=== PATIENT | male | born 1930 | race Caucasian/White ===

== ENCOUNTER 2020-03-16 11:11 | Observation (INO) | payer MEDICARE, BC ==
[~2020-03-16] VITALS: Ht 182.9 cm; Wt 104.3 kg
[2020-03-16] VITALS (8 sets, daily range): BP systolic 100–157; BP diastolic 54–77
--- NOTE | ~2020-03-16 | H ---
[address] [address] HISTORY AND PHYSICAL Name: KELSIEMAIDA Room: [address] Hali Gonsalves#: [id number] Admission: 03/16/20 Attend Phys: Quinn Anderson MD, Discharge: 03/17/20 Date of : [birth year] Report #: [id number] THIS REPORT FOR: //name// cc: Esther Muñiz MD, Amir R. MD ~ THIS REPORT FOR: //name// Please refer to the History and Physical performed in the physician's office. By: [facility]3Medical Records Staff [facility] /MIGUEL
[2020-03-16 11:55] LABS: HEMATOCRIT 43.1 % (42.0-52.0); HEMOGLOBIN 14.8 gm/dL (14.0-18.0); MCH 31.6 pg (26.0-34.0); MCHC 34.4 g/dL (28.0-37.0); MCV 91.7 fL (80.0-100.0); RBC 4.7 mil/uL (4.50-6.00); RDW-CV 13.4 % (10.5-14.5)
[2020-03-16 12:03] LABS: ANION GAP 8 mmol/L (7-16); BUN 25 mg/dL (7-18); CALCIUM 9.5 mg/dL (8.5-10.1); CHLORIDE 102 mmol/L (98-107); CO2 26 mmol/L (21-32); GLUCOSE 245 mg/dL (70-99); POTASSIUM 4.7 mmol/L (3.5-5.1); SODIUM 136 mmol/L (136-145)
[2020-03-16 12:04] LABS: APTT 26.5 Seconds (25.0-31.3); PROTIME 10.8 Seconds (9.20-11.50)
[2020-03-16 12:07] LABS: ALBUMIN 3.5 g/dL (3.4-5.0); ALKALINE PHOSPHATASE 109 U/L (46-116); CHOLESTEROL 109 mg/dL (<200); HDL CHOLESTEROL 31 mg/dL (>40); LDL CHOLESTEROL 25 mg/dL (<100); SGOT 20 U/L (15-37); SGPT 25 U/L (30-65); TC:HDL 3.5 Ratio (Not establshd); TOTAL BILIRUBIN 0.9 mg/dL (<0.1-1.0); TOTAL PROTEIN 7.4 g/dL (6.4-8.2); TRIGLYCERIDE 268 mg/dL (<150); VLDL 54 mg/dL (<40)
[2020-03-16 12:09] LABS: SERUM ASSESSMENT Clear
[2020-03-16] MEDS ORDERED: ADULT LOW DOSE81 MG PO (13:42)
[2020-03-16] MEDS ORDERED: LIPITOR 20 MG T20 M1 PO (13:43)
[2020-03-16] MEDS ORDERED: VITAMIN D-40010 MCG PO (13:45)
[2020-03-16] MEDS ORDERED: ARICEPT10 M1 PO (13:47)
[2020-03-16] MEDS ORDERED: TRULICITY1.5 MG/0.5 INTRADERM (13:50)
[2020-03-16] MEDS ORDERED: FISH OIL OMEGA1 EAC2 PO (13:51)
[2020-03-16] MEDS ORDERED: AMARYL4 MG PO (13:52)
[2020-03-16] MEDS ORDERED: NEURONTIN100 MG PO (13:52)
[2020-03-16] MEDS ORDERED: XALATAN2.5 ML EA. EYE (13:53)
[2020-03-16] MEDS ORDERED: COZAAR 25 MG TA25 M2 PO (13:54)
[2020-03-16] MEDS ORDERED: TOPROL XL25 MG PO (13:55)
[2020-03-16] MEDS ORDERED: THERAGRAN STRE1 EACH PO (13:56)
[2020-03-16] MEDS ORDERED: NITROSTAT0.4 M1 SUBLING (13:58)
[2020-03-16] MEDS ORDERED: OMEPRAZOLE 20 M20 M1 PO (13:58)
[2020-03-16] MEDS ORDERED: IMDUR 30 MG TAB30 M1 PO (14:00)
[2020-03-17] VITALS: BP 133/70; BP 138/68
[2020-03-17 04:00] VITALS: BP 127/73
--- NOTE | 2020-03-17 04:05 | NUR ---
PT ALERT ORIENTED TO SELF AND PLACE. PT HAS DEMENTIA. HE IS ABLE TO HOLD A CONVERSATION. TELEMETRY SHOWS SR BBB. INITAL POST CATH ASSESSMENT PT WITH VENOUS SHEATH IN. LATER REMOVED BY SPINNING BATH PERSON. NO BLEEDING POST SHEATH REMOVAL.IVF PLACED ON PUMP AND STARTED AT 100SLS/HR AT 0800. OOB AT 0100. UP TO BR. PT HAD A BM AND VOIDED. RESTING QUIETLY NOW.
[2020-03-17 08:00] VITALS: BP 138/69
--- NOTE | 2020-03-17 08:58 | EKG ---
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: GLORIA : 1930 Requested By: Quinn Anderson Order Number: [id number] Jewell MD: Sid Zimmerman Measurements Intervals [place] Rate: 75 P: 0 [place]: 216 QRS: 76 QRSD: 127 T: -85 QT: 452 QTc: 505 Interpretive Statements Atrial-sensed ventricular-paced complexes No further analysis attempted due to paced rhythm Baseline wander in lead(s) II No previous ECG available for comparison Electronically Signed On 03-17-2020 8:58:15 CDT by Sid Zimmerman [email or web address] <ELECTRONICALLY SIGNED> By: Sid Zimmerman MD, FAC 03/17/20 0858 1210 1210 Sid Zimmerman MD, [facility] /EPI
[2020-03-17 09:19] LABS: HEMATOCRIT 39.8 % (42.0-52.0); HEMOGLOBIN 13.8 gm/dL (14.0-18.0); MCH 31.7 pg (26.0-34.0); MCHC 34.8 g/dL (28.0-37.0); MPV 7.5 fl. (7.2-11.1); RBC 4.37 mil/uL (4.50-6.00); RDW-CV 13.6 % (10.5-14.5); WBC 9.9 thou/uL (4.0-11.0)
[2020-03-17 09:41] LABS: CALCIUM 8.7 mg/dL (8.5-10.1); CREATININE 1.7 mg/dL (0.6-1.3); POTASSIUM 4.5 mmol/L (3.5-5.1)
[2020-03-17 09:51] LABS: ALBUMIN 3.4 g/dL (3.4-5.0); TOTAL BILIRUBIN 0.9 mg/dL (<0.1-1.0); TOTAL PROTEIN 6.8 g/dL (6.4-8.2)
[2020-03-17 11:21] VITALS: BP 138/69
[2020-03-17] MEDS ORDERED: BRILINTA90 MG PO (11:38)
[2020-03-17 11:49] VITALS: BP 138/69
--- NOTE | 2020-03-17 12:12 | NUR ---
ASSUMED PT CARE AT 0730, PT RESTING IN BED AND HAS NO C/O PAIN OR SHORTNESS OF BREATH. PT IS A&OX4, ON RA AND STATES HE WANTS TO GO HOME. RT GROIN CATH SITE C/D/I W/ SOME BRUISING NOTED UNDER CAUZE AND TRANSPARENT BANDAGE. CARDIAC REHAB CAME TO SPEAK W/ PT THIS MORNING. PT GOAL IS TO WORK ON DC PLANNING TO HOME. AM ASSESSMENT CHARTED, MEDS PER MAR, HOURLY ROUNDING OBSERVED, CALL LIGHT W/IN REACH, FALL PRECAUTIONS IN PLACE, WILL CONTINUE POC.
--- NOTE | 2020-03-17 12:41 | D ---
[address] [address] DISCHARGE SUMMARY Name: MAIDA IGLESIAS Room: [address] Hali Gonsalves#: [id number] Admission: 03/16/20 Attend Phys: Quinn Anderson MD, Discharge: Date of : [birth year] Report #: [id number] THIS REPORT FOR: //name// cc: Esther Muñiz MD, Amir R. MD ~ THIS REPORT FOR: //name// CC: Esther Anderson DATE OF SERVICE: 03/17/2020 FINAL DISCHARGE DIAGNOSES: 1. Unstable angina. 2. Coronary artery disease. 3. Status post percutaneous coronary intervention with deployment of 3 drug-eluting stents in the left anterior descending with angioplasty of the ostium of the first marginal branch of the circumflex. 4. Hyperlipidemia. 5. Hypertension. 6. Carotid stenosis. 7. Diabetes. 8. Chronic obstructive pulmonary disease. PROCEDURES: 03/16/2020 - selective coronary arteriography and percutaneous coronary intervention with angioplasty and stenting of the LAD with 1 drug-eluting stent deployed in the proximal LAD and 2 in the mid. I performed angioplasty of the ostium of high-grade stenosis in the first marginal branch of the circumflex. He had a chronic total occlusion of the right coronary artery with [id number] collaterals filling the distal right coronary artery and 80% first diagonal stenosis. These were not approached in the acute setting. Post-procedurally, the patient denied any chest pain and there was no recurrence of the angina that had plagued him prior to the procedure. He ambulated in the hallways without difficulty and there was good hemostasis at the right femoral site of catheterization. He was discharged to home on 03/17/2020 on the following medications: Aspirin 81 mg daily, atorvastatin 20 mg daily, cholecalciferol/vitamin D3 of 1000 units daily, Aricept 10 mg daily, Trulicity once a week, gabapentin 100 mg t.i.d., glimepiride 4 mg b.i.d., iron 1 tablet daily, Imdur 30 mg daily, Xalatan eyedrops 1 drop in each eye daily, losartan 25 mg daily, metoprolol succinate 25 mg daily, omega-3 fatty acids 1000 mg daily, omeprazole 40 mg b.i.d., ticagrelor or Brilinta 90 [place] [address] DISCHARGE SUMMARY Name: MAIDA IGLESIAS Room: [address]#: [id number] Admission: 03/16/20 Attend Phys: Quinn Anderson MD, Discharge: Date of : [birth year] Report #: [id number] The patient is scheduled to see my nurse practitioner in 7-10 days and myself in 4 weeks. <ELECTRONICALLY SIGNED> By: Quinn Anderson MD, [facility] 03/17/20 1241 0959 1020Jorose Anderson MD, FACC /nt
--- NOTE | 2020-03-17 13:12 | CARD ---
[address] [address] CARDIAC CATH REPORT Name: MAIDA IGLESIAS Room: [address] Hali Gonsalves#: [id number] Admission: 03/16/20 Attend Phys: Quinn Anderson MD, Discharge: Date of : [birth year] Report #: [id number] THIS REPORT FOR: //name// cc: Esther Muñiz MD, Amir R. MD ~ APPROVED REPORT Study performed: 03/16/2020 15:17:52 Patient Details Patient Status: In-Patient Room #: The patient is a 89 year-old male Event Personnel Quinn Anderson Mold Sprayer, Nicolas Sharma RN Wireless Development Manager, Joseph Ramírez Scrub, Celeste Vann RTR Monitor Procedures Performed Right arterial access, Right venous access, Coronary Angiography Only, ANDREY Place w/wo Plasty Single LAD, PTCA Single Vessel OM Indication Unstable angina Risk Factors Hypercholesterolemia, Hypertension, Last Creatanine 2.0 Admission/Lab Medications/Medications given during procedure Angiomax 16 ml, Angiomax 20.9 ml/hr, Angiomax 3 ml, Ticagrelor PO 180 mg, Aspirin PO 162 mg Procedure Narrative The patient was brought electively to the Cardiac Catheterization Laboratory and was prepped and draped in a sterile manner. The right femoral was infiltrated with 1% Lidocaine subcutaneous anesthesia. A 6F [place] sheath was inserted into the right femoral artery. Coronary angiography was performed using coronary diagnostic catheters. The right coronary system was accessed and visualized with a 6F JR4 catheter. The left coronary system was accessed and visualized with a 6F JL5 catheter. Pre-demployment femoral angiogram was performed . Closure device was deployed with a 6 Fr Angioseal STS. The patient tolerated the procedure well and there were no [facility] [address] [place] [address] CARDIAC CATH REPORT Name: MAIDA IGLESIAS Room: [address]#: [id number] Admission: 03/16/20 Attend Phys: Quinn Anderson MD, Discharge: Date of : [birth year] Report #: [id number] complications associated with the procedure. There was no hematoma. A 5F [place] sheath was inserted into the right femoral vein, for IV access. 5F sheath was sutured in place post procedure. Intraoperative Conscious Sedation Procedure start time: 16:05. Procedure end time: 18:00. No sedation was given. Fluoro Time: 45.4 minutes Dose: DAP 304231 cGycm2 5408 mGy Contrast Type and Amount: Visipaque 520 ml Diagnostic Cath Left Main 0% narrowing LAD 75% irregular calcified proximal stenosis with tandem 90% heavily calcified mid LAD stenosis Circumflex 50% mid vessel narrowing with 95% ostial stenosis of the prominent first marginal branch Right Coronary 100% occlusion of this dominant vessel proximally with bridging collaterals faintly filling the distal right coronary as well as [id number] collaterals filling the distal right coronary artery Left Ventriculography Left Ventriculography was not performed. Hemodynamics The aortic pressure is 141/67 mmHg with a mean of 92 mmHg. PCI Technique Lesion Anticoagulation was achieved with Angiomax. Patient was preloaded with Angiomax 16 ml IV bolus. Percutaneous coronary intervention was performed on the mid left anterior descending artery segment. The lesion stenosis prior to intervention was 90% with DAVID 3 flow. A 6F XB 4.0 Guide Catheter was used to engage the lm ostium. A BMW 190 cm Interventional Guidewire was used to cross the lesion. BALLOON DILATION A Balloon catheter Trek RX 2.5 x 12 was inserted and inflated up to 16atm for 11seconds. Additional Inflation: 19atm for 12seconds. Additional Inflation: 20atm for 14seconds. STENT DEPLOYMENT A drug-eluting stent [place] RX Stent 2.5 x 12mm was inserted and inflated up to 15atm for 8seconds. Additional Inflation: 16[place] [address] CARDIAC CATH REPORT Name: MAIDA IGLESIAS Room: [address] M.R.#: [id number] Admission: 03/16/20 Attend Phys: Quinn Anderson MD, Discharge: Date of : [birth year] Report #: [id number] 11seconds. A drug-eluting [place] RX Stent 2.0 x 8mm was inserted and inflated up to 15 benito for 11 seconds. Additional Inflation 18 benito for 12 seconds. POST STENT DEPLOYMENT BALLOON DILATION A Balloon catheter NC Trek RX 2.5 x 8 was inserted and inflated up to 18atm for 10seconds. Additional Inflation: 20atm for 8seconds. Final angiography reveals 10 % stenosis with DAVID 3 flow. COMMENTS The procedure was technically complex by virtue of severe calcification throughout the LAD system requiring significant lesion modification prior to stent deployment in the proximal and mid portions of this heavily calcified vessel. PCI Technique Lesion 2 Percutaneous Coronary Intervention was performed on the proximal left anterior descending artery segment. Patient was preloaded with Angiomax 16 ml IV bolus. The lesion stenosis prior to intervention was 75% with DAVID 3 flow. A 6F XB 4.0 Guide Catheter was used to engage the lm ostium. A BMW 190 cm Interventional Guidewire was used to cross the lesion. Balloon Dilation A Balloon catheter Trek RX 2.75 x 15 was inserted and inflated up to 18atm for 14seconds. Additional Inflation: 20atm for 12seconds. Stent Deployment A drug-eluting stent [place] RX Stent 2.5 x 15mm was inserted and inflated up to 18atm for 14seconds. Additional Inflation: 21atm for 10seconds. Final angiography reveals 10 % stenosis with DAVID 3 flow. PCI Technique Lesion 3 Percutaneous Coronary Intervention was performed on the first obtuse marginal branch segment. Patient was preloaded with Angiomax 16 ml IV bolus. The lesion stenosis prior to intervention was 95% with DAVID 3 flow. A 6F XB 4.0 Guide Catheter was used to engage the lm ostium. A BMW 190 CM Interventional Guidewire was used to cross the lesion. Balloon Dilation [address] [address] CARDIAC CATH REPORT Name: MAIDA IGLESIAS Room: [address] Hali Gonsalves#: [id number] Admission: 03/16/20 Attend Phys: Quinn Anderson MD, Discharge: Date of : [birth year] Report #: [id number] A Balloon catheter Mini Trek RX 1.20 x 12 was inserted and inflated up to 14atm for 17seconds. Additional Inflation: 18atm for 17seconds. A Balloon catheter Trek RX 2.25 x 8 was inserted and inflated up to 14 benito for 13 seconds. Additional Inflations: 12 benito for 18 seconds; 14 benito for 13 seconds. A Balloon catheter Euphora SC 2.25 x 6mm was inserted and inflated up to 12 benito for 18 seconds. Additional Inflation: 14 benito for 13 seconds. A Balloon catheter Euphora SC 1.5 x 10mm was inserted and inflated up to 18 benito for15 seconds. Additional Inflations: 18 benito for 13 seconds; 18 benito for 13 seconds. A Balloon catheter Euphora SC 2.25 x 10mm was inserted and inflated up to 18 benito for 11 seconds. Additional Inflations: 18 benito for 9 seconds; 18 benito for 9 seconds; 18 benito for 9 seconds. Final angiography reveals 50 % stenosis with DAVID 3 flow. Conclusion 1. Severe coronary artery disease characterized by the following: A 75% calcified proximal LAD stenosis with 90% tandem heavily calcified mid LAD stenosis B 50% mid circumflex narrowing with 95% ostial first marginal stenosis C total occlusion of the dominant right artery proximally with bridging collaterals and eokg-jp-gwugd collaterals filling the distal right coronary system 2. Normal systemic pressure throughout the study 3. Successful PCI with deployment of sequential drug-eluting stents at the sites of 75% heavily calcified proximal LAD stenosis and tandem 90% heavily calcified mid LAD stenoses with 10% residual narrowings at all sites following stent deployment and DAVID-3 flow to the distal vessel 4. Successful PTCA with angioplasty of the ostium of a 95% heavily calcified first marginal stenosis with 50% residual narrowing and DAVID-3 flow to the distal vessel Recommendations Cardiac Risk Reduction Program Aggressive Medical Therapy Medications Administered [facility] [address] [place] [address] CARDIAC CATH REPORT Name: MAIDA IGLESIAS Room: [address] Hali M.R.#: [id number] Admission: 03/16/20 Attend Phys: Quinn Anderson MD, Discharge: Date of : [birth year] Report #: [id number] Aspirin (any) Ticagrelor Diagnostic Cath Approved by: Quinn Anderson MD Date/Time: 03/17/2020 13:05:47 <ELECTRONICALLY SIGNED> By: Quinn Anderson MD, FACC 03/17/20 131 10 10Quinn Anderson MD, FACC /INF
--- NOTE | 2020-03-17 13:20 | NUR ---
DC ORDERS RECEIVED. DC INSTRUCTIONS, CARE NOTES, SCRIPTS, F/U APPTS GIVEN TO PT, PT COMMUNICATES UNDERSTANDING OF DC TEACHING. IV AND GAMING DIRECTOR REMOVED. PT DC'D BY WC W/ DAUGHTER AND NURSING STAFF TO DAUGHTER'S PERSONAL VEHICLE.
--- NOTE | 2020-03-17 18:18 | EKG ---
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: ÁNGEL : 1930 Requested By: Quinn Anderson Order Number: [id number] Jewell MD: Sid Zimmerman Measurements Intervals [place] Rate: 67 P: -19 [place]: 163 QRS: -60 QRSD: 141 T: 110 QT: 456 QTc: 482 Interpretive Statements Atrially sensed ventricularly paced rhythm compared to ECG 03/16/2020 12:10:10 No significant changes noted Electronically Signed On 03-17-2020 18:18:14 CDT by Sid Zimmerman [email or web address] <ELECTRONICALLY SIGNED> By: Sid Zimmerman MD, [facility] 03/17/20 1818 1023 1023 Sid Zimmerman MD, [facility] /EPI
== END 2020-03-17 13:00 | disposition home or self-care (01) ==
LOC: M.CL 11:11 → M.2W 17:44 → M.TBA-CV 17:44 → M.2W 19:00
PROVIDERS: ADMIT Internal Medicine; ATTEND Internal Medicine
DX: I25.110 Atherosclerotic heart disease of native coronary artery with unstable angina pectoris (principal); I10 Essential (primary) hypertension; E78.00 Pure hypercholesterolemia, unspecified; E11.9 Type 2 diabetes mellitus without complications; J44.9 Chronic obstructive pulmonary disease, unspecified

== ENCOUNTER 2020-03-28 08:34 | Observation (INO) | payer MEDICARE, BC ==
[2020-03-28] VITALS (17 sets, daily range): BP systolic 102–149; BP diastolic 53–77
[~2020-03-28] VITALS: Ht 182.9 cm; Wt 108.0 kg
--- NOTE | ~2020-03-28 | D ---
[address] [address] DISCHARGE SUMMARY Name: MAIDA IGLESIAS Room: [address] Hali Gonsalves#: [id number] Admission: 03/28/20 Attend Phys: Quinn Anderson MD, Discharge: Date of : [birth year] Report #: [id number] THIS REPORT FOR: //name// cc: Esther Muñiz MD, Amir R. MD ~ THIS REPORT FOR: //name// CC: Esther Anderson DATE OF SERVICE: 03/29/2020 FINAL DISCHARGE DIAGNOSES: 1. Unstable angina. 2. Status post prior stenting of the LAD with a percutaneous coronary intervention of the first diagonal and first marginal on 03/28. 3. Coronary artery disease. 4. Hypertension. 5. Hyperlipidemia. 6. Type 2 diabetes. 7. Heart block, status post placement of a permanent pacemaker. 8. Modest renal insufficiency. PROCEDURES: On 03/28/20 -- selective coronary arteriography and PTCA of the first diagonal branch and first marginal branch of the circumflex. HOSPITAL COURSE: The patient is an active 89-year-old male with underlying coronary artery disease. He presented with unstable angina approximately 2 weeks ago and underwent stenting of the LAD with 3 drug-eluting stents deployed. He has had an improvement in his anginal pattern, but persistent discomfort at times and in this context, I performed recatheterization on 03/28 which revealed widely patent LAD stents with 90% first diagonal stenosis and a 95% ostial first marginal stenosis. I dilated both lesions with a 30% residual first diagonal narrowing and a 50-60% residual first marginal narrowing. I was unable to deploy stents at either side by virtue of marked tortuosity and severe calcification proximal to the lesions. He did well post-procedurally with a minimal increase in troponin to 0.75. Additional labs revealed sodium 134; potassium 4.2; BUN 20; creatinine 1.8, (down from 2.0 preprocedurally); glucose 109; white blood cell count 10,600; hemoglobin 12.2; hematocrit 35.1; platelets 224,000. The patient ambulated in the hallways without difficulty [place] [address] DISCHARGE SUMMARY Name: MAIDA IGLESIAS Room: [address] M.R.#: [id number] Admission: 03/28/20 Attend Phys: Quinn Anderson MD, Discharge: Date of : [birth year] Report #: [id number] hemostasis at the right femoral site of catheterization. DISCHARGE MEDICATIONS: He was discharged to home on the following medications: Aspirin 81 mg daily, atorvastatin 20 mg daily, vitamin D3 1000 units daily, Aricept 10 mg daily, Trulicity subcutaneously once per week 1.5 mg, gabapentin 100 mg t.i.d., glimepiride 4 mg b.i.d., iron 1 tablet daily, Imdur 30 mg daily, Xalatan eyedrops 1 drop in each eye daily, losartan 25 mg daily, metoprolol succinate 25 mg daily, omega 3 fatty acids 1000 mg daily, omeprazole 40 mg b.i.d., ticagrelor or Brilinta 90 mg b.i.d., and p.r.n. sublingual nitroglycerin. I will plan to see the patient in followup on at 1100 hours. Therefore, the patient is discharged to home in stable condition on the aforementioned medications with followup as described above. By: 0905 0922Quinn Anderson MD, [facility] /nt
[~2020-03-28 08:34] MED LIST: ADULT LOW DOSE81 MG PO; AMARYL4 MG PO; ARICEPT10 M1 PO; BRILINTA90 MG PO; COZAAR 25 MG TA25 M2 PO; FISH OIL OMEGA1 EAC2 PO; IMDUR 30 MG TAB30 M1 PO; LIPITOR 20 MG T20 M1 PO; NEURONTIN100 MG PO; NITROSTAT0.4 M1 SUBLING; OMEPRAZOLE 20 M20 M1 PO; THERAGRAN STRE1 EACH PO; TOPROL XL25 MG PO; TRULICITY1.5 MG/0.5 INTRADERM; VITAMIN D-40010 MCG PO; XALATAN2.5 ML EA. EYE
[2020-03-28 09:25] LABS: HEMATOCRIT 36.8 % (42.0-52.0); HEMOGLOBIN 12.7 gm/dL (14.0-18.0); MCH 31.5 pg (26.0-34.0); MCHC 34.5 g/dL (28.0-37.0); MCV 91.1 fL (80.0-100.0); MPV 7.9 fl. (7.2-11.1); RBC 4.04 mil/uL (4.50-6.00); RDW-CV 13.6 % (10.5-14.5); WBC 12.3 thou/uL (4.0-11.0)
[2020-03-28 09:28] LABS: ANION GAP 8 mmol/L (7-16); BUN 21 mg/dL (7-18); CALCIUM 9.3 mg/dL (8.5-10.1); CHLORIDE 99 mmol/L (98-107); CO2 26 mmol/L (21-32); GLUCOSE 199 mg/dL (70-99); POTASSIUM 4.1 mmol/L (3.5-5.1); SODIUM 133 mmol/L (136-145)
[2020-03-28 09:29] LABS: APTT 26.2 Seconds (25.0-31.3); PROTIME 10.8 Seconds (9.20-11.50)
[2020-03-28 09:32] LABS: ALBUMIN 3.3 g/dL (3.4-5.0); ALKALINE PHOSPHATASE 105 U/L (46-116); CHOLESTEROL 97 mg/dL (<200); HDL CHOLESTEROL 32 mg/dL (>40); LDL CHOLESTEROL 28 mg/dL (<100); SGOT 23 U/L (15-37); SGPT 24 U/L (30-65); TOTAL BILIRUBIN 0.8 mg/dL (<0.1-1.0); TOTAL PROTEIN 6.8 g/dL (6.4-8.2); TRIGLYCERIDE 188 mg/dL (<150); VLDL 38 mg/dL (<40)
[2020-03-28 09:33] LABS: SERUM ASSESSMENT Clear
--- NOTE | 2020-03-28 13:15 | NUR ---
PT ADMITTED TO ROOM 206 FROM LINUX SUPPORT ENGINEER. PT ACCOMPANIED BY DAUGHTER. PT IS ALERT AN ABLE TO ANSWER QUESTIONS APPROPRIATELY.[place]. LIVES WITH DAUGHTER. VSS ON RA. PT IS AV PACED ON MONITOR. SITE TO RIGHT GROIN CDI. NS AT 100. SERVIN CATHETER DRAINING APPROPRIATELY. MEDS RECONCILED. FALL PRECAUTIONS IN PLACE. WCTM
--- NOTE | 2020-03-28 15:42 | EKG ---
[place] [address] ELECTROCARDIOGRAM REPORT Name: MAIDA IGLESIAS Room: [address] M.R.#: [id number] Admission: 03/28/20 Attend Phys: Onelia Smith Discharge: Date of : [birth year] Date of Service: 03/28/20 0936 Report #: [id number] THIS REPORT FOR: //name// [facility] Test Date: 2020-03-28 Test Time: 09:36:37 Pat Name: MAIDA IGLESIAS Department: Room: [facility] Gender: M Guest Relations Officer: : 1930 Requested By: Quinn Anderson Order Number: [id number] Reading MD: Quinn Anderson Measurements Intervals [place] Rate: 69 P: 70 [place]: 167 QRS: -66 QRSD: 138 T: 105 QT: 443 QTc: 475 Interpretive Statements Atrial-sensed ventricular-paced rhythm No further analysis attempted due to paced rhythm Baseline wander in lead(s) V5 Compared to ECG 03/17/2020 10:23:55 No significant changes Electronically Signed On 03-28-2020 15:42:27 CDT by Quinn Anderson [email or web address] <ELECTRONICALLY SIGNED> By: Quinn Anderson MD, FAC 03/28/20 1542 0936 0936 Quinn Anderson MD, FAC /EPI
--- NOTE | 2020-03-28 15:45 | EKG ---
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 Hand: GLORIA : 1930 Requested By: Quinn Anderson Order Number: [id number] Jewell MD: Quinn Anderson Measurements Intervals [place] Rate: 60 P: 76 [place]: 142 QRS: -65 QRSD: 136 T: 98 QT: 446 QTc: 446 Interpretive Statements A-V dual-paced rhythm No further analysis attempted due to paced rhythm Compared to ECG 03/28/2020 09:36:37 Atrial-sensed ventricular-paced complex(es) or rhythm no longer present Electronically Signed On 03-28-2020 15:44:53 CDT by Quinn Anderson [email or web address] <ELECTRONICALLY SIGNED> By: Quinn Anderson MD, [facility] 03/28/20 1544 1430 1430 Quinn Anderson MD, [facility] /EPI
[2020-03-29] VITALS (7 sets, daily range): BP systolic 125–132; BP diastolic 55–68
[2020-03-29 04:45] LABS: HEMATOCRIT 35.1 % (42.0-52.0); HEMOGLOBIN 12.2 gm/dL (14.0-18.0); MCH 31.6 pg (26.0-34.0); MCHC 34.9 g/dL (28.0-37.0); MCV 90.5 fL (80.0-100.0); MPV 7.6 fl. (7.2-11.1); RBC 3.87 mil/uL (4.50-6.00); RDW-CV 13.6 % (10.5-14.5); WBC 10.6 thou/uL (4.0-11.0)
[2020-03-29 05:01] LABS: ALBUMIN 3.1 g/dL (3.4-5.0); CALCIUM 8.9 mg/dL (8.5-10.1); CREATININE 1.8 mg/dL (0.6-1.3); POTASSIUM 4.2 mmol/L (3.5-5.1); TOTAL BILIRUBIN 0.9 mg/dL (<0.1-1.0); TOTAL PROTEIN 6.6 g/dL (6.4-8.2)
[2020-03-29 05:04] LABS: TROPONIN-I LEVEL 0.75 ng/mL (<0.06)
--- NOTE | 2020-03-29 09:58 | EKG ---
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: GLORIA : 1930 Requested By: Quinn Anderson Order Number: [id number] Jewell MD: Dre Morales Measurements Intervals [place] Rate: 68 P: 61 [place]: 162 QRS: -62 QRSD: 138 T: 104 QT: 449 QTc: 478 Interpretive Statements Atrial-sensed ventricular-paced rhythm No further analysis attempted due to paced rhythm Compared to ECG 03/28/2020 14:30:14 atrial pacing no longer noted Electronically Signed On 03-29-2020 9:58:06 CDT by Dre Morales [email or web address] <ELECTRONICALLY SIGNED> By: Dre Morales MD, [facility] 03/29/20 0958 0759 0759 Dre Morales MD, [facility] /EPI
--- NOTE | 2020-03-29 12:30 | NUR ---
SPOKE WITH CARDIOLOGY WHICH ORDERED BLADDER SCAN. SCAN SHOWED 541 ML.SERVIN ORDERED WITH PARAMETERS INCLUDING IRRIGATION. PT WAS ABLE TO VOID PRIOR TO INTERVENTION, 450 ML. POST VOID SCAN 22 ML.PT DOES APPEAR PALE, EYES A LITTLE EDEMATOUS. LABORATORY ANIMAL CARE VETERINARIAN STATES THAT WOULD BE OK TO SEND HOME. DAUGHTER REPORTS THAT GIVEN PRESENT APPEARANCE SHE WOULD LIKE TO WAIT UNTIL HE CAN VOID 1 MORE TIME. TOLD DAUGHTER I WOULD BE OK WITH THIS. WCTM
--- NOTE | 2020-03-29 12:36 | NUR ---
PT HAD GOOD MORNING. DCD SERVIN AND BEGAN DC PROCESS. PATIENTS FIRST VOID CONTAINED BLOOD CLOTS. PAGED CARDIOLOGY AND GAVE PT NEW URINAL. WCTM CLOSELY
[2020-03-29 16:08] LABS: HEMATOCRIT 33.8 % (42.0-52.0); HEMOGLOBIN 11.8 gm/dL (14.0-18.0)
--- NOTE | 2020-03-29 16:09 | CARD ---
[address] [address] CARDIAC CATH REPORT Name: MAIDA IGLESIAS Room: [address] Hali Gonsalves#: [id number] Admission: 03/28/20 Attend Phys: Quinn Anderson MD, Discharge: Date of : [birth year] Report #: [id number] THIS REPORT FOR: //name// cc: Esther Muñiz MD, Amir R. MD ~ APPROVED REPORT Study performed: 03/28/2020 08:53:54 Patient Details Patient Status: Out-Patient Room #: The patient is a 89 year-old male Event Personnel Quinn Anderson Utility Clerk, Nicolas Sharma RN Rehab Liaison, Joseph Ramírez ScrubSoo Becki RTR Monitor Procedures Performed Art Access - R femoral artery, Coronary Angiography Only CORANG, PTCA Single Vessel DIAG PCISINGLE, PTCA Addl Branch OM 1 PCIADDL , Hemostasis w/ Angioseal Indication Unstable angina Previous Procedures/Diagnoses Previous PCI Admission/Lab Medications/Medications given during procedure Angiomax IV 16 ml, Angiomax Drip IV 37.3 ml per hr, Angiomax Drip decreased IV 21.36 ml per hr, Ticagrelor PO 90 mg Procedure Narrative The patient was brought electively to the Cardiac Catheterization Laboratory and was prepped and draped in a sterile manner. The right femoral was infiltrated with 1% Lidocaine subcutaneous anesthesia. A 6F/23cm Brite Tip sheath was inserted into the right femoral artery. Coronary angiography was performed using coronary diagnostic catheters. The left coronary system was accessed and visualized with a 6F XB4.0 Guide catheter. Pre-demployment femoral angiogram was performed . Closure device was deployed with a 6 Fr Angioseal STS. The patient tolerated the procedure well and there were no complications associated with the procedure. [place] [address] CARDIAC CATH REPORT Name: MAIDA IGLESIAS Room: [address] M.R.#: [id number] Admission: 03/28/20 Attend Phys: Quinn Anderson MD, Discharge: Date of : [birth year] Report #: [id number] Intraoperative Conscious Sedation Case start time: 09:57. Case end time: 11:45. No sedation given. Fluoro Time: 37.4 minutes Dose: DAP [id number] cGycm2 3821 mGy Contrast Type and Amount: Visipaque 400 ml Diagnostic Cath Left Main 10% distal narrowing LAD 30% proximal diagnosismid vessel disease with widely patent stents Diagonal 1 90% heavily calcified proximal stenosis Circumflex 50% mid vessel narrowing with 95% ostial first marginal stenosis Right Coronary 100% proximal right coronary occlusion by prior cineangiogram with collateral filling of the distal right coronary artery Left Ventriculography Left Ventriculography was not performed. Hemodynamics The aortic pressure is 141/63 mmHg with a mean of 92 mmHg. PCI Technique Lesion Anticoagulation was achieved with Angiomax. Patient was preloaded with Angiomax IV bolus 16 ml. Percutaneous coronary intervention was performed on the first diagnonal branch segment. The lesion stenosis prior to intervention was 90% with DAVID 3 flow. A 6F XB 4.0 Guide Catheter was used to engage the lm ostium. A BMW 190cm Interventional Guidewire was used to cross the lesion. BALLOON DILATION A Balloon catheter Mini Trek RX 1.2 X 8 was inserted and inflated up to 18.00atm for 11seconds. Additional Inflation: 18.00atm for 9seconds. Additional Inflation: 18.00atm for 7seconds. A balloon catheter Trek RX 2.25 x 8 was inserted and inflated up to 12 benito for 7 seconds. Additional Inflations: 14 benito for 7 seconds; 16 benito for 7 seconds; 18 benito for 7 seconds. A balloon catheter NC Trek RX 2.0 x 8 was inserted and inflated up to 15 benito for 9 seconds. Additional Inflations: 18 am for 10 seconds; 22 benito for 12 seconds; 24 benito for 14 seconds; 25 benito for 11 seconds; 26 benito for 10 seconds. Final angiography reveals 20 % stenosis with DAVID 2 [place] [address] CARDIAC CATH REPORT Name: MAIDA IGLESIAS Room: [address] M.R.#: [id number] Admission: 03/28/20 Attend Phys: Quinn Anderson MD, Discharge: Date of : [birth year] Report #: [id number] PCI Technique Lesion 2 Percutaneous Coronary Intervention was performed on the first obtuse marginal branch segment. Patient was preloaded with Angiomax IV bolus 16 ml. The lesion stenosis prior to intervention was 90% with DAVID 3 flow. A 6F XB 4.0 Guide Catheter was used to engage the lm ostium. A BMW 190cm Interventional Guidewire was used to cross the lesion. Balloon Dilation A Balloon catheter Mini Trek RX 1.5 X 8 was inserted and inflated up to 16.00atm for 7seconds. Additional Inflation: 20.00atm for 8seconds. Additional Inflation: 20.00atm for 9seconds. A balloon catheter Euphora SC 2.25 x 6 was inserted and inflated up to 16 benito for 10 seconds. Additional Inflations: 18 benito for 10 seconds; 20 benito for 9 seconds. Final angiography reveals 50-60 % stenosis with DAVID 3 flow. Conclusion 1. Severe coronary artery disease characterized by the following: A 10% distal left main coronary narrowing B 30% proximal and mid LAD narrowing with widely patent stents with 90% proximal first diagonal stenosis C 50% mid circumflex narrowing with 95% ostial first marginal stenosis D previously defined total occlusion of the right coronary artery proximally with [id number] collaterals filling the distal right coronary artery 2. Successful PTCA of the 90% first diagonal stenosis with 20% residual narrowing and DAVID-3 flow the distal vessel 3 successful PTCA at the ostium of the 95% first marginal stenosis with 50 - 60% residual narrowing and DAVID-3 flow to the distal marginal Recommendations Aggressive Medical Therapy Medications Administered [address] [address] CARDIAC CATH REPORT Name: MAIDA IGLESIAS Room: M.206-P ADM Hali Gonsalves#: [id number] Admission: 03/28/20 Attend Phys: Quinn Anderson MD, Discharge: Date of : [birth year] Report #: [id number] Ticagrelor Diagnostic Cath Approved by: Quinn Anderson MD Date/Time: 03/29/2020 16:08:25 <ELECTRONICALLY SIGNED> By: Quinn Anderson MD, [facility] 03/29/20 1609 [id number] Anderson MD, FACC /INF
== END 2020-03-29 17:16 | disposition home or self-care (01) ==
LOC: M.CL 08:34 → M.TBA-CV 12:07 → M.2W 12:07
PROVIDERS: Registered Nurse; ADMIT Internal Medicine; ATTEND Internal Medicine
DX: I25.110 Atherosclerotic heart disease of native coronary artery with unstable angina pectoris (principal); I10 Essential (primary) hypertension; E78.5 Hyperlipidemia, unspecified; E11.9 Type 2 diabetes mellitus without complications; N28.9 Disorder of kidney and ureter, unspecified; I45.9 Conduction disorder, unspecified

== ENCOUNTER 2020-08-28 16:39 | Emergency (ER) | payer MEDICARE, BC ==
[~2020-08-28] VITALS: Ht 182.9 cm; Wt 104.3 kg
[2020-08-28] MEDS ORDERED: ACID CONTROLLER20 MG PO (17:09)
[2020-08-28 19:19] VITALS: BP 132/60
== END 2020-08-28 19:19 | disposition home or self-care (01) ==
LOC: M.ERS 16:39
DX: S60.221A Contusion of right hand, initial encounter (principal); S09.8XXA Other specified injuries of head, initial encounter; M54.2 Cervicalgia; M25.562 Pain in left knee; E78.5 Hyperlipidemia, unspecified; G62.9 Polyneuropathy, unspecified; I13.10 Hypertensive heart and chronic kidney disease without heart failure, with stage 1 through stage 4 chronic kidney disease, or unspecified chronic kidney disease; E11.22 Type 2 diabetes mellitus with diabetic chronic kidney disease; N18.30 Chronic kidney disease, stage 3 unspecified; W06.XXXA Fall from bed, initial encounter; Y93.89 Activity, other specified; Y92.89 Other specified places as the place of occurrence of the external cause; Y99.8 Other external cause status